=== PATIENT | female | born 1995 | race African-American/Black ===

== ENCOUNTER 2018-01-15 07:21 | Emergency (ER) | payer SELFPAY ==
[~2018-01-15] VITALS: Ht 177.8 cm; Wt 77.0 kg
[2018-01-15 07:39] VITALS: BP 137/91
== END 2018-01-15 11:21 | disposition left against medical advice (07) ==
LOC: ER 08:56
DX: Z53.21 Procedure and treatment not carried out due to patient leaving prior to being seen by health care provider (principal)